=== PATIENT | female | born 1985 ===

== ENCOUNTER 2017-05-27 23:26 | Inpatient (IN) | payer MEDICAID, SELFPAY ==
[2017-05-28 00:17] VITALS: BMI 34.7
[2017-05-28] MEDS ORDERED: Lactated Ringer's 1,000 ML IV SCH ×2 (00:18→00:30)
[2017-05-28] MEDS ORDERED: Nalbuphine 20 mg/ml Inj (1 ml) IVP PRN (00:22)
[2017-05-28 00:53] LABS: BASO % 0.3 % (0.0-2.0); EOS % 0.6 % (0.0-4.0); HEMATOCRIT 37.7 % (34.0-47.0); LYMPH # 2.3 K/uL (1.0-4.3); LYMPH % 30.5 % (20.0-40.0); MEAN CELL VOLUME 77.8 fl (81.0-99.0); MEAN CORPUSCULAR HEMOGLOBIN 25.5 pg (27.0-31.0); MEAN CORPUSCULAR HGB CONC 32.8 g/dL (33.0-37.0); MEAN PLATELET VOLUME 8.7 fl (7.2-11.7); MONO # 0.6 K/uL (0.0-0.8); MONO % 8.2 % (0.0-10.0); NEUT # 4.6 K/uL (1.8-7.0); NEUT % 60.4 % (50.0-75.0); RED CELL DISTRIBUTION WIDTH 14.3 % (11.5-14.5); WHITE BLOOD COUNT 7.6 K/uL (4.8-10.8)
[2017-05-28] MEDS ORDERED: Bupivacaine HCl 0.25% PF (10 ml) Inj ONE ×2 (02:39→08:43)
[2017-05-28] MEDS ORDERED: Fentanyl/Bupivacaine HCl 250 ML EPI ONE (03:25)
[2017-05-28 04:18] VITALS: BP 128/69; PULSE 98; RESP 18; TEMP 98.5; O2SAT 100
[2017-05-28] MEDS ORDERED: Oxytocin 30 units/LR 500ML 30 U/500 ML BAG IV ONE (06:50)
--- NOTE | 2017-05-28 06:57 | OBPN ---
Datetime: 05/28/2017 05:28 IP Progress Impression: Normal progression of labor IP Progress Plan: Continue present management IP Progress Note Comment: S: patient lying in bed w/ mild discomfort. She complains of increase in frequency and intensity of contraction and pelvic pressure. O: 98.0 F, 118/81 mmHg, 84 bpm, FHR 140, moderate variability CTX: Q5-10 mins SVE: 6 cm dilation, 80% effaced, membranes intact meds: LR @ 125mL/hr, epidural given @ 03:30 A: IUP @ 39.2 wks in active stage of labor P: FHT reactive, no decels - Active management anticipate vaginal delivery Rivas Rodriguez M.D. [employer] PGY-1 Vital Signs Provider: Reviewed; Within Normal Limits Dilatation, Provider: 6 Effacement, Provider: 80 Datetime: 05/28/2017 00:23 Membranes, Provider: Intact FHR - Baseline A Provider: 140 NICHD Accel Fetus A IP Provider: 15X15 FHR Category Provider Fetus A: Category I NICHD Variability Prov Fetus A: Moderate 6-25bpm Station, Provider: -2 NICHD Decel Fetus A IP Provider: None
--- NOTE | 2017-05-28 07:02 | OBPN ---
Datetime: 05/28/2017 06:57 IP Progress Impression: Normal progression of labor IP Informed Consent Obtain: Vaginal Delivery IP Procedures: Sterile Vag Exam IP Progress Plan: Continue present management Membranes, Provider: Ruptured Amniotic Fluid Color, Provider: Bloody Contraction Comments Provider: q 2-4 mins FHR - Baseline A Provider: 140 IP Progress Note Comment: Patient comfortable s/p epidural VE=6-7/100/-1, AROM blood tinged DLN=331 mod royce, +accels, no decels TOCO=ctxning q 2-4 mins A/P 1. Patient progressing into active phase of labor, now 6-7cm, AROM scant blood tinged fluid. Will start pitocin for augmentation 2. CEFM and TOCO 3. Re-evaluate as needed NICHD Accel Fetus A IP Provider: 15X15 NICHD Variability Prov Fetus A: Moderate 6-25bpm Dilatation, Provider: 6-7 Effacement, Provider: 100 Station, Provider: -1 NICHD Decel Fetus A IP Provider: None
[2017-05-28] MEDS ORDERED: Lidocaine 1% Inj (20ml) ONE (10:16)
[2017-05-28] MEDS ORDERED: Lidocaine 2% PF (10 ml) Amp ONE (13:17)
[2017-05-28] MEDS ORDERED: Oxycodone/Acetaminophen 5/325 mg Tab PO PRN ×4 (13:50→15:54)
[2017-05-28] MEDS ORDERED: Benzocaine/Menthol SPRAY TOP PRN (13:50)
[2017-05-28] MEDS ORDERED: Oxytocin 30 units/LR 500ML 30 U/500 ML BAG IV SCH (13:50)
[2017-05-28] MEDS: Benzocaine/Menthol SPRAY TOP PRN (21:00)
--- NOTE | 2017-05-28 21:52 | OBDS ---
DELIVERY PERSONNEL Delivery Doctor: Ike Rendon MD [employer] Teacher: Saskia Chew RN/Jesica Carvalho RN Anesthesiologist: Geovany Schmitt MD Resident: Jarrell Torres, PGY1 MATERNAL INFORMATION Delivery Anesthesia: Epidural Medications in Delivery: Pitocin 30 units in 500 mls, Lidocaine Estimated Blood Loss (ml): 600 Placenta Cultured: No Maternal Complications: None Provider Comments: Delivery Note Dx: 39.2wks; labor PP Dx: Same Proced: cord blood collected; ; repair of lacer; plac delivered spontaneously and intact ob:hema resident: anil pgy1 Anesth: Epidural; 1%local lidocaine Anesthesiologist: fanny ebl: 600cc neon remained in br with pt path: none LABOR SUMMARY EDC: 06/02/2017 00:00 No. Babies in Womb: 1 Attempted: No Labor Anesthesia: Epidural LABOR INFORMATION Reason for Induction: Not Applicable Onset of Labor: 05/28/2017 04:04 Complete Dilatation: 05/28/2017 08:52 Other Ripening Agents: N/A Oxytocin: Augmentation Group B Beta Strep: Negative Antibiotics # of Doses: N/A Antibiotics Time of Last Dose: N/A Steroids Given: None Reason Steroids Not Administered: Not Applicable Other Reason Not Administered: N/A MEMBRANES Membranes Rupture Method: Artificial Rupture of Membranes: 05/28/2017 06:45 Length of Rupture (hrs): 6.20 Amniotic Fluid Color: blood tinged Amniotic Fluid Amount: Scant Amniotic Fluid Odor: None STAGES OF LABOR Stage 1 hrs: 4 Stage 1 min: 48 Stage 2 hrs: 4 Stage 2 min: 5 Stage 3 hrs: 0 Stage 3 min: 13 Total Time in Labor hrs: 9 Total Time in Labor min: 6 VAGINAL DELIVERY Episiotomy: None Laceration Extension: Third Degree Laceration Type: Perineal; Vaginal Laceration Repair: Yes Initial Vag Sponge Count: 15 Final Vag Sponge Count: 15 Initial Vag Sharps Count: 4 Final Vag Sharps Count: 4 Sponge Count Correct: Yes Sharps Count Correct: Yes Count Comment: Count correct. Confirmed by Dr. Baeza. BABY A INFORMATION Delivery Date/Time: 05/28/2017 12:57 Method of Delivery: Vaginal Born in Route : No : N/A Forceps: N/A Vacuum Extraction: N/A Shoulder Dystocia : No SHOULDER DYSTOCIA BABY A Delivery Date/Time: 05/28/2017 12:57 PRESENTATION/POSITION BABY A Presentation: Cephalic Cephalic Presentation: Vertex Breech Presentation: N/A PLACENTA INFORMATION BABY A Placenta Delivery Time : 05/28/2017 13:10 Placenta Method of Delivery: Spontaneous Placenta Status: Delivered SCORES BABY A Heart Rate 1 min: >100 bpm Resp Effort 1 min: Good Cry Reflex Irritability 1 min: Cough or Sneeze or Pulls Away Muscle Tone 1 min: Active Motion Color 1 min: Body [place], Extremities Blue SCORE 1 MIN: 9 Heart Rate 5 min: >100 bpm Resp Effort 5 min: Good Cry Reflex Irritability 5 min: Cough or Sneeze or Pulls Away Muscle Tone 5 min: Active Motion Color 5 min: Body [place], Extremities Blue SCORE 5 MIN: 9 INFORMATION BABY A Gestational Age at Delivery: 39.2 Gestational Status: Term Outcome : Liveborn Infant Condition : Stable Infant Sex: Male IDENTIFICATION/MEDS BABY A ID Band Number: [id number] WEIGHT/LENGTH BABY A Infant Birthweight (gms): 3055 Infant Weight (lb): 6 Infant Weight (oz): 12 CORD INFORMATION BABY A No. Cord Vessels: 3 Nuchal Cord : Around Neck x1, Loose Nuchal Cord Other: N/A True Knot: N/A Cord pH Baby Venous: N/A Cord Blood Taken: Yes Banking/Donate Info: N/A Infant Suction: None; Mouth
[2017-05-29 06:41] LABS: HEMATOCRIT 31.8 % (34.0-47.0); MEAN CELL VOLUME 77.9 fl (81.0-99.0); MEAN CORPUSCULAR HEMOGLOBIN 25.2 pg (27.0-31.0); MEAN CORPUSCULAR HGB CONC 32.4 g/dL (33.0-37.0); RED CELL DISTRIBUTION WIDTH 14.2 % (11.5-14.5); WHITE BLOOD COUNT 17.6 K/uL (4.8-10.8)
--- NOTE | 2017-05-29 11:59 | OBPPN ---
Datetime: 05/29/2017 05:12 PP Pain Prov: Within normal limits PP Nausea Prov: Denies PP Flatus Prov: Yes PP BM Prov: No PP Breasts Prov: Not Done PP Heart Prov: Normal PP Lungs Prov: Normal PP Abdomen/Uterus Prov: Normal PP Lochia Prov: Normal PP Vulva/Perineum Prov: Not Done PP CVA Tenderness Prov: Not Done PP Extremities Prov: Not Done PP C/S Incision Prov: Not Applicable PP Progress Prov: Normal PP Impression Prov: Normal progression PP Plan Prov: Continue present management PP Progress Note Prov: 31 y/o now seen and examined at bedside. Patient had uneventful overnig ht. Patient reports mild pelvic pain controlled w/ pain meds. OOB/Ambulating w/o dizziness. Breast /bottle feeding w/o difficulty. Tolerating PO diet well. Lochia is less than menses in volume. Voi ding freely w/ no blood noted. Reports no bowel movement. Denies fevers, chills, n/v/d, CP/SOB, lig htheadedness and calf pain. PE: GEN: A_O, resting comfortably in bed, NAD Lung: CTA B/L, no wheezing, rhonchi, or rales CVS: S1, S2 wnl, RRR Abd: +BS, firm fundus below umbilicus. EXT: no edema, negative Yuly's, calves non-tender Assessment: 31 y/o now s/p on 05/28/2017 @ 12:57 tolerating pain w/ medication, tolerati ng oral intake, adequate urine output, doing well on PPD1. Plan: Percocet 5/325 mg 1-2 tabs PO Q6h prn for mod/severe pain. Ibuprofen 600 mg 1 tab Q6h PO pr n for mild pain. Encourage breast feeding and ambulation. Rivas Rodriguez M.D. [employer] PGY-1 The patient was seen with the resident and I agree with the note encourage ambulation encouraged b reast-feeding informed consent obtained for circumcision anticipate discharge in a.m. IP PP Procedures: None Vital Signs Provider PP: Reviewed; Within Normal Limits
[2017-05-30] MEDS: Benzocaine/Menthol SPRAY TOP PRN (13:03)
--- NOTE | 2017-06-17 13:02 | OBADHP ---
Datetime: 05/28/2017 06:57 FHR - Baseline A Provider: 140 Amniotic Fluid Color, Provider: Bloody Membranes, Provider: Ruptured Contraction Comments Provider: q 2-4 mins NICHD Variability Prov Fetus A: Moderate 6-25bpm NICHD Accel Fetus A IP Provider: 15X15 NICHD Decel Fetus A IP Provider: None Dilatation, Provider: 6-7 Effacement, Provider: 100 Station, Provider: -1 Datetime: 05/28/2017 05:28 Vital Signs Provider: Reviewed; Within Normal Limits Datetime: 05/28/2017 00:23 IP Chief Complaint Other: mucus plug fell Admit Comment, IP Provider: 31 y/o @ 39.2 weeks presents w/ uterine contractions and mucus plug falling. the patietn reports brown discharge and clot-like material fell out around 19:00 last nigh t. The patient also reports contractions that started about 2 hours ago that have gotten stronger, l asting about 1 minute, and occurring every 10 minutes. The patient reports positive movements and taking PNVs. The patient denies headaches, chest pain, SOB, n/v/d, dysuria, fevers and LOF. Clinic: [facility] PMH: none PSH: right eye surgery OBHx: none SOC: denies smoking, alcohol, and drugs allergies: NKDA GBS: neg ABO-Rh: O+ HIV: neg RPR: neg HBsag: neg GC/C: neg O: CV: RRR Resp: CTA bl Pelvic: 4 cm, 80%, -2, intact membranes A: 31 y/o @ 39.2 weeks presents w/ contractions P: admit to unit initiate labor protocol continuous monitoring LR IV bolus LR IV @ 125mL/hr CBC ordered type and screen ordered tylenol prn for fever nubain IVP prn for pain anesthesia consult ordered for epidural anticipate vaginal delivery Rivas Rodriguez MD Equine Vet Pelvic Type - PN: Adequate Extremities - PN: Not Done Abdomen - PN: Normal Back - PN: Normal Breast - PN: Not Done Lungs - PN: Normal Heart - PN: Normal Thyroid - PN: Not Done Neurologic - PN: Normal HEENT - PN: Normal General - PN: Normal IP Hx Assessment: The History has been Reviewed and is Current IP Chief Complaint: Uterine contractions; Other FHR Category Provider Fetus A: Category I Genitourinary Exam: Normal DTRs - PN: Not Done EGA AdmitDate IP: 39.2 IP Adm Impression: Term, intrauterine IP Admit Plan: Admit to unit; Initiate labor protocol
== END 2017-05-30 14:47 | disposition home or self-care (01) | DRG 373 ==
LOC: H.EROB2 23:26 → H.EROB 23:26 → H.L&D 05-28 00:18 → H.EROB2 05-28 00:35 → H.L&D 05-28 10:55 → H.OB/GYN 05-28 16:00
PROVIDERS: ADMIT Obstetrics & Gynecology; ATTEND Obstetrics & Gynecology
PROC: 10E0XZZ Delivery of Products of Conception, External Approach (ICD-10-PCS; principal; 2017-05-28)
PROC: 0DQR0ZZ Repair Anal Sphincter, Open Approach (ICD-10-PCS; 2017-05-28)
PROC: 10907ZC Drainage of Amniotic Fluid, Therapeutic from Products of Conception, Via Natural or Artificial Opening (ICD-10-PCS; 2017-05-28)
PROC: 4A1HXCZ Monitoring of Products of Conception, Cardiac Rate, External Approach (ICD-10-PCS; 2017-05-28)
DX: O69.81X0 Labor and delivery complicated by cord around neck, without compression, not applicable or unspecified (principal); O70.20 Third degree perineal laceration during delivery, unspecified; Z37.0 Single live birth; Z3A.39 39 weeks gestation of pregnancy